=== PATIENT | female | born 1955 | race Caucasian/White ===

== ENCOUNTER 2021-04-25 09:26 | Observation (INO) | payer OTHER ==
[2021-04-25 10:00] LABS: Absolute Lymphocytes (CBC) 1.5 K/uL (0.7-4.9); Basophils % 0.6 % (0-1.3); Lymphocytes % 23.8 % (15.3-44.8); MPV 8.8 fL (7.6-11.3); RBC Red Blood Cell Count 4.74 M/uL (3.86-4.86)
[2021-04-25 10:12] LABS: ALT/SGPT 24 U/L (12-78); AST/SGOT 17 U/L (15-37); Albumin 3.9 g/dL (3.4-5.0); Alkaline Phosphatase 98 U/L (45-117); BUN Blood Urea Nitrogen 10 mg/dL (7-18); Bicarbonate 26 mmol/L (21-32); Bilirubin Direct 0.1 mg/dL (0-0.2); Bilirubin Total 0.5 mg/dL (0.2-1.0); Glucose Level 110 mg/dL (74-106); Magnesium 2.1 mg/dL (1.8-2.4); NT PRO-BNP 99 pg/mL (<125); Potassium 3.7 mmol/L (3.5-5.1); Protein, Total 7.5 g/dL (6.4-8.2); Protime INR 0.91; Sodium Level 141 mmol/L (136-145); Troponin (Emerg Dept Use Only) < 0.02 ng/mL (0.0-0.045)
--- NOTE | 2021-04-25 10:30 | RAD REPORT ---
EXAM DESCRIPTION: RAD - Chest Single View - 04/25/2021 10:17 am CLINICAL HISTORY: CHEST PAIN Chest pain. COMPARISON: No comparisons FINDINGS: Portable technique limits examination quality. The lungs are grossly clear. The heart is normal in size. No displaced fractures. IMPRESSION: No acute intrathoracic process suspected.
--- NOTE | 2021-04-25 11:44 | ER ---
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 + SOB, dizzy, and nausea. Recent change to higher dose of lisinopril. Coronavirus screen: Vaccine status: Patient reports receiving the 2nd dose of the covid vaccine. Client denies travel out of the [place] in the last 14 days. nausea, At this time, the client does not indicate any symptoms associated with coronavirus-19. Ebola Screen: Patient denies travel to an Ebola-affected area in the 21 days before illness onset. Initial Sepsis Screen: Does the patient meet any 2 criteria? No. Patient's initial sepsis screen is negative. Does the patient have a suspected source of infection? No. Patient's initial sepsis screen is negative. Risk Assessment: Do you want to hurt yourself or someone else? Patient reports no desire to harm self or others. Onset of symptoms was April 25, 2021. 09:35 Method Of Arrival: Ambulatory ll1 09:35 Acuity: ANNE 3 ll1 Triage Assessment: 09:40 General: Appears in no apparent distress. Behavior is calm, cooperative, appropriate ll1 for age. Pain: Complains of pain in chest Pain currently is 2 out of 10 on a pain scale. Quality of pain is described as pressure, Pain began 3 hours ago. Is continuous. Neuro: Level of Consciousness is awake, alert, obeys commands, Oriented to person, place, time, situation, Appropriate for age Passenger Brakeman are equal bilaterally Moves all extremities. Full function Gait is steady, Speech is normal, Reports dizziness. Cardiovascular: Reports chest pain, shortness of breath, Heart tones S1 S2 Capillary refill < 3 seconds Clubbing of nail beds is absent JVD Patient's skin is warm and dry. Rhythm is regular. Historical: - Allergies: 09:37 No Known Allergies; ll1 - PMHx: 09:37 Hypertensive disorder; ll1 - PSHx: 09:37 None; ll1 - Immunization history:: Client reports receiving the 2nd dose of the Covid vaccine. - Social history:: Smoking status: Patient denies any tobacco usage or history of. Patient/guardian denies using alcohol, street drugs, The patient lives with family. - Family history:: not pertinent. Screenin:11 Abuse screen: Denies threats or abuse. Nutritional screening: No deficits noted. ll1 Tuberculosis screening: No symptoms or risk factors identified. Fall Risk IV access (20 points). Gait- Impaired (20 pts.). Total Sullivan Fall Scale indicates Low Risk Score (25-44 pts). Fall prevention measures have been instituted. Side Rails Up X 2 Placed close to Nursing Station Frequent Obs/Assesments occuring As available Patient and Family Educated on Fall Prevention Program and strategies. Assessment: 10:40 Reassessment: No changes from previously documented assessment. Patient and/or family ll1 updated on plan of care and expected duration. Pain level reassessed. Patient is alert, oriented x 3, equal unlabored respirations, skin warm/dry/pink. 11:40 Reassessment: No changes from previously documented assessment. Patient and/or family ll1 updated on plan of care and expected duration. Pain level reassessed. Patient is alert, oriented x 3, equal unlabored respirations, skin warm/dry/pink. 12:40 Reassessment: No changes from previously documented assessment. Patient and/or family ll1 updated on plan of care and expected duration. Pain level reassessed. Patient is alert, oriented x 3, equal unlabored respirations, skin warm/dry/pink. 13:40 Reassessment: No changes from previously documented assessment. Patient and/or family ll1 updated on plan of care and expected duration. Pain level reassessed. Patient is alert, oriented x 3, equal unlabored respirations, skin warm/dry/pink. 14:12 Pain: Pain does not radiate. ll1 15:13 Reassessment: No changes from previously documented assessment. Patient and/or family ll1 updated on plan of care and expected duration. Pain level reassessed. Patient is alert, oriented x 3, equal unlabored respirations, skin warm/dry/pink. Pain: Denies pain. Vital Signs: 09:35 BP 168 / 88; Pulse 70; Resp 16; Temp 97.9; Pulse Ox 99% on R/A; Weight 73.94 kg; Height ll1 5 ft. 2 in. (157.48 cm); Pain 2/10; 12:00 BP 134 / 75; Pulse 56; Resp 16; ll1 13:00 BP 134 / 82; Pulse 59; Resp 16; ll1 14:09 BP 139 / 86; Pulse 63; Resp 16; Pulse Ox 99% on R/A; ll1 15:12 BP 131 / 81; Pulse 60; Resp 16; Pulse Ox 99% on R/A; ll1 15:58 BP 136 / 81; Pulse 60; Resp 16; Pulse Ox 99% ; ll1 09:35 Body Mass Index 29.81 (73.94 kg, 157.48 cm) 1 ED Course: 09:28 Patient arrived in ED. mr 09:30 Rosa Leiva MD is Attending Physician. ma2 09:35 Garret Aguila, RN is Primary Nurse. 1 09:37 Triage completed. 1 09:37 Arm band placed on Patient placed in an exam room, on a stretcher. 1 09:45 Patient has correct armband on for positive identification. Bed in low position. Call 1 light in reach. Side rails up X 1. 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 Pulse ox on. NIBP on. 09:45 Inserted saline lock: 22 gauge in right antecubital area, using aseptic technique. ll1 Blood collected. Patient maintains SpO2 saturation greater than 95% on room air. 10:17 XRAY Chest (1 view) In Process Unspecified. EDAL 11:43 Rosa Mcgregor MD is Hospitalizing Provider. nh2 15:22 No provider procedures requiring assistance completed. Patient admitted, IV remains in [address] Administered Medications: No medications were administered Outcome: 11:43 Decision to Hospitalize by Provider. ma2 15:22 Admitted to Tele accompanied by tech, via stretcher, room 206, with chart, Report 1 called to Joey Zabala 15:22 Condition: stable 15:22 Instructed on the need for admit. 15:58 Patient left the ED. 1 Signatures: Dispatcher [employer] EDAL GerardoBeti mr Rosa Leiva MD MD ma2 Garret Aguila, RN RN [facility]
--- NOTE | 2021-04-25 11:44 | EDPHYS ---
Physician Documentation [facility] Name: Leta Limon Age: 66 yrs Sex: Female : 1955 Arrival Date: 04/25/2021 Time: 09:28 Bed 20 Private MD: ED Physician Rosa Leiva HPI: 04/25 11:41 This 66 yrs old Female presents to ER via Ambulatory with complaints of Chest ma2 Tightness. 11:41 Onset: gradually, 1 day(s) ago. Associated signs and symptoms: Pertinent negatives: ma2 cough, headache, lower extremity swelling, lightheadedness, syncope, vomiting. Severity of pain: At its worst the pain was moderate in the emergency department the pain is unchanged. The patient has experienced similar episodes in the past. Historical: - Allergies: 09:37 No Known Allergies; ll1 - PMHx: 09:37 Hypertensive disorder; ll1 - PSHx: 09:37 None; ll1 - Immunization history:: Client reports receiving the 2nd dose of the Covid vaccine. - Social history:: Smoking status: Patient denies any tobacco usage or history of. Patient/guardian denies using alcohol, street drugs, The patient lives with family. - Family history:: not pertinent. ROS: 11:41 Constitutional: Negative for fever, chills, and weight loss. ma2 11:41 All other systems are negative. Exam: 11:41 Constitutional: This is a well developed, well nourished patient who is awake, alert, ma2 and in no acute distress. Head/Face: Normocephalic, atraumatic. Eyes: Pupils equal round and reactive to light, extra-ocular motions intact. Lids and lashes normal. Conjunctiva and sclera are non-icteric and not injected. Cornea within normal limits. Periorbital areas with no swelling, redness, or edema. ENT: Nares patent. No nasal discharge, no septal abnormalities noted. Tympanic membranes are normal and external auditory canals are clear. Oropharynx with no redness, swelling, or masses, exudates, or evidence of obstruction, uvula midline. Mucous membranes moist. Neck: Trachea midline, no thyromegaly or masses palpated, and no cervical lymphadenopathy. Supple, full range of motion without nuchal rigidity, or vertebral point tenderness. No Meningismus. Chest/axilla: Normal chest wall appearance and motion. Nontender with no deformity. No lesions are appreciated. Cardiovascular: Regular rate and rhythm with a normal S1 and S2. No gallops, murmurs, or rubs. Normal PMI, no JVD. No pulse deficits. Respiratory: Lungs have equal breath sounds bilaterally, clear to auscultation and percussion. No rales, rhonchi or wheezes noted. No increased work of breathing, no retractions or nasal flaring. Abdomen/GI: Soft, non-tender, with normal bowel sounds. No distension or tympany. No guarding or rebound. No evidence of tenderness throughout. Skin: Warm, dry with normal turgor. Normal color with no rashes, no lesions, and no evidence of cellulitis. MS/ Extremity: Pulses equal, no cyanosis. Neurovascular intact. Full, normal range of motion. Neuro: Awake and alert, GCS 15, oriented to person, place, time, and situation. Cranial nerves II-XII grossly intact. Motor strength 5/5 in all extremities. Sensory grossly intact. Cerebellar exam normal. Normal gait. Vital Signs: 09:35 BP 168 / 88; Pulse 70; Resp 16; Temp 97.9; Pulse Ox 99% on R/A; Weight 73.94 kg; Height ll1 5 ft. 2 in. (157.48 cm); Pain 2/10; 12:00 BP 134 / 75; Pulse 56; Resp 16; ll1 13:00 BP 134 / 82; Pulse 59; Resp 16; ll1 14:09 BP 139 / 86; Pulse 63; Resp 16; Pulse Ox 99% on R/A; ll1 15:12 BP 131 / 81; Pulse 60; Resp 16; Pulse Ox 99% on R/A; ll1 15:58 BP 136 / 81; Pulse 60; Resp 16; Pulse Ox 99% ; ll1 09:35 Body Mass Index 29.81 (73.94 kg, 157.48 cm) ll1 MDM: 09:51 Patient medically screened. ma2 11:41 Differential diagnosis: abnormal EKG, anxiety, coronary artery disease chest wall pain, ma2 gastroesophageal reflux disease (GERD), stable angina. HEART Score: History: Moderately Suspicious (1), ECG: Non specific repolarization disturbance / LBTB / PM (1), Age: > or = 65 years (2), Risk Factors: 1 or 2 risk factors (1), Troponin: < or = 1 x Normal Limit (0), Total Score = 5. Data reviewed: vital signs, nurses notes, EMS record, lab test result(s), EKG. Counseling: I had a detailed discussion with the patient and/or guardian regarding: the historical points, exam findings, and any diagnostic results supporting the discharge/admit diagnosis, the presence of at least one elevated blood pressure reading (>120/80) during this emergency department visit, the need for outpatient follow up. 04/25 09:30 Order name: Basic Metabolic Panel [facility] 04/25 09:30 Order name: CBC with Diff; Complete Time: 10:53 [facility] 04/25 09:30 Order name: LFT's [facility] 04/25 09:30 Order name: Magnesium; Complete Time: 10:53 [facility] 04/25 09:30 Order name: NT PRO-BNP; Complete Time: 10:53 [facility] 04/25 09:30 Order name: PT-INR; Complete Time: 10:53 [facility] 04/25 09:30 Order name: Troponin (emerg Dept Use Only); Complete Time: 10:53 sd2 04/25 09:30 Order name: XRAY Chest (1 view); Complete Time: 10:53 sd2 04/25 09:30 Order name: Basic Metabolic Panel; Complete Time: 10:53 [facility] 04/25 09:31 Order name: Liver (Hepatic) Function; Complete Time: 10:53 [facility] 04/25 12:51 Order name: Troponin I [facility] 04/25 13:41 Order name: COVID-19 (Coronavirus) Document "Date of Onset" if Symptomatic 04/25 14:14 Order name: CORONAVIRUS [facility] 04/25 15:01 Order name: SARS-COV-2 RT PCR [facility] 04/25 09:30 Order name: EKG; Complete Time: 09:31 ma2 04/25 09:30 Order name: Cardiac monitoring; Complete Time: 09:46 ma2 04/25 09:30 Order name: EKG - Nurse/Tech; Complete Time: 09:46 ma2 04/25 09:30 Order name: IV Saline Lock; Complete Time: 09:46 ma2 04/25 09:30 Order name: Labs collected and sent; Complete Time: 09:46 ma2 04/25 09:30 Order name: O2 Per Protocol; Complete Time: 09:46 ma2 04/25 09:30 Order name: O2 Sat Monitoring; Complete Time: :46 ma2 04/25 12:51 Order name: CONS Physician Consult [facility] 04/25 12:51 Order name: Heart Healthy [facility] 04/25 12:51 Order name: Echo with Doppler [facility] Administered Medications: No medications were administered Disposition Summary: 04/25/21 11:43 Hospitalization Ordered Hospitalization Status: Observation ma2 Provider: Rosa Mcgregor Location: Telemetry/MedSurg (Inpatient) ma2 Condition: Stable ma2 Problem: new ma2 Symptoms: are unchanged ma2 Bed/Room Type: Standard [facility] Room Assignment: 206(04/25/21 15:08) dw Diagnosis - Chest pain, unspecified ma2 Forms: - Medication Reconciliation Form ma2 - SBAR form ma2 Signatures: Dispatcher [employer] Marlin Gallo RN RN dw Rosa Leiva MD MD sd2 Garret Aguila RN RN ll1 Corrections: (The following items were deleted from the chart) 15:08 11:43 ma2 dw
[2021-04-25] MEDS ORDERED: ALPRAZOLAM 0.25 MG TABLET PO PRN (12:47)
[2021-04-25] MEDS ORDERED: ACETAMINOPHEN 500 MG TAB PO PRN (12:47)
[2021-04-25] MEDS: ENOXAPARIN 40 MG/0.4 ML SQ SCH (14:00)
[2021-04-25 16:18] VITALS: O2SAT 99
--- NOTE | 2021-04-25 17:51 | P.HP ---
Certification for Inpatient Patient admitted to: Observation With expected LOS: <2 Midnights Patient will require the following post-hospital care: None Practitioner: I am a practitioner with admitting privileges, knowledge of patient current condition, hospital course, and medical plan of care. Services: Services provided to patient in accordance with Admission requirements found in Title 42 Section 412.3 of the Code of Federal Regulations Patient History Date of Service: 04/25/21 Reason for admission: Chest pain rule out acute coronary syndrome History of Present Illness: Patient is a 66-year-old female came to the hospital with chest discomfort. Pain was mainly in the sternal region. Patient states this was more pressure sensation. Patient decided to come into the hospital for further evaluation. In the emergency room patient's initial troponins and EKG were unremarkable. Patient does not have any medical history. Patient has a family history of father with heart disease. He in his 50s. At this time, patient will be admitted for further evaluation. - Past Medical/Surgical History Past Medical History: Patient denies medical history Past Surgical History: Patient denies surgical history - Family History Father Medical History: Heart disease - Social History Smoking Status: Never smoker Alcohol use: No CD- Drugs: No Review of Systems 10-point ROS is otherwise unremarkable Physical Examination - Vital Signs Temperature: 97.9 F Blood Pressure: 136/81 Pulse: 60 Respirations: 16 - Physical Exam General: Alert, In no apparent distress, Oriented x3 HEENT: Atraumatic, PERRLA, Mucous membr. moist/pink, EOMI, Sclerae nonicteric Neck: Supple, 2+ carotid pulse no bruit, No LAD, Without JVD or thyroid abnormality Respiratory: Clear to auscultation bilaterally, Normal air movement Cardiovascular: Regular rate/rhythm, Normal S1 S2, No murmurs Gastrointestinal: Normal bowel sounds, Soft and benign, Non-distended, No tenderness Musculoskeletal: No clubbing, No swelling, No tenderness Integumentary: No rashes Neurological: Normal gait, Normal speech, Normal strength at 5/5 x4 extr, Normal tone, Sensation intact, Cranial nerves 3-12 intact, Normal affect Lymphatics: No axilla or inguinal lymphadenopathy - Studies Laboratory Data (last 24 hrs) 04/25/21 09:40: PT 10.9, INR 0.91 04/25/21 09:40: WBC 6.20, Hgb 13.6, Hct 41.0, Plt Count 172 04/25/21 09:40: Sodium 141, Potassium 3.7, BUN 10, Creatinine 0.85, Glucose 110 H, Magnesium 2.1, Total Bilirubin 0.5, AST 17, ALT 24, Alkaline Phosphatase 98 Assessment & Plan - Problems (Diagnosis) (1) Chest pain, rule out acute myocardial infarction Current Visit: Yes Status: Acute - Plan 1. Serial troponins and EKG 2. Appreciate Cardiology consultation 3. Echocardiogram and outpatient stress test 4. Anti-platelet therapy, anti coagulation, beta-farzana, statin, and O2 as needed 5. IV morphine for pain 6. Nitro p.r.n. Discharge Plan: Home Plan to discharge in: 24 Hours - Advance Directives Does patient have a Living Will: No Does patient have a Durable POA for Healthcare: No - Code Status/Comfort Care Code Status Assessed: Yes Code Status: Full Code Critical Care: No Time Spent Managing PTS Care (In Minutes): 45
[2021-04-25 19:46] VITALS: BMI 29.8
[2021-04-25] MEDS: MORPHINE 4 MG/ML SYR IV PRN (20:45)
[2021-04-25] MEDS: METOPROLOL TAR 25 MG TAB PO SCH (20:45)
[2021-04-26] MEDS: MORPHINE 4 MG/ML SYR IV PRN ×2 (03:06→06:25)
[2021-04-26 05:58] LABS: Absolute Lymphocytes (CBC) 1.5 K/uL (0.7-4.9); Hematocrit 40.5 % (36.0-45.0); MPV 8.8 fL (7.6-11.3); RBC Red Blood Cell Count 4.69 M/uL (3.86-4.86)
[2021-04-26 06:16] LABS: BUN Blood Urea Nitrogen 10 mg/dL (7-18); Bicarbonate 27 mmol/L (21-32); Glucose Level 108 mg/dL (74-106); Sodium Level 141 mmol/L (136-145); Troponin I < 0.02 ng/mL (0.0-0.045)
[2021-04-26 08:26] VITALS: BP 139/83; TEMP 97.8
[2021-04-26] MEDS ORDERED: ASPIRIN EC 81 MG TAB PO SCH (09:00)
[2021-04-26] MEDS: METOPROLOL TAR 25 MG TAB PO SCH ×2 (09:00→10:34)
[2021-04-26] MEDS: ENOXAPARIN 40 MG/0.4 ML SQ SCH ×2 (09:00→10:33)
[2021-04-26] MEDS ORDERED: PNEUMOCOCCAL VACCINE 0.5 ML IMVAC ONE (11:00)
[2021-04-26] MEDS ORDERED: INFLUENZA VACCINE (for 6+ mo) 0.5 ML DOSE IMVAC ONE (11:00)
--- NOTE | 2021-04-28 08:32 | ECHO ---
HEIGHT: 5 ft 2 in WEIGHT: 163 lb 0.157 oz DATE OF STUDY: 04/25/[address]: Rosa Mcgregor MD 2-DIMENSIONAL: YES M.MODE: YES DOPPLER: YES COLOR FLOW: YES TDS: NO PORTABLE: NO DEFINITY: NO BUBBLE STUDY: NO DIAGNOSIS: CHEST PAIN CARDIAC HISTORY: CATHERIZATION: SURGERY: PROSTHETIC VALVE: PACEMAKER: MEASUREMENTS (cm) DIASTOLIC (NORMALS) SYSTOLIC (NORMALS) IVSd 1.0 (0.6-1.2) LA Diam 3.5 (1.9-4.0) LVEF 56% LVIDd 5.0 (3.5-5.7) LVIDs 3.5 (2.0-3.5) %FS 29% LVPWd 1.1 (0.6-1.2) Ao Diam 3.1 (2.0-3.7) 2 DIMENSIONAL ASSESSMENT: RIGHT ATRIUM: NORMAL LEFT ATRIUM: NORMAL RIGHT VENTRICLE: NORMAL LEFT VENTRICLE: NORMAL TRICUSPID VALVE: NORMAL MITRAL VALVE: PULMONIC VALVE: NORMAL AORTIC VALVE: NORMAL PERICARDIAL EFFUSION: NONE AORTIC ROOT: NORMAL LEFT VENTRICULAR WALL MOTION: NORMAL DOPPLER/COLOR FLOW: SEE BELOW COMMENTS: NORMAL LEFT VENTRICULAR EJECTION FRACTION 55-60%. NORMAL WALL MOTION. MILD MITRAL REGURGITATION. SMALL PERICARDIAL EFFUSION. TECHNOLOGIST: Mesha JACOB
== END 2021-04-26 13:34 | disposition home or self-care (01) ==
LOC: ER 09:26 → ERHOLD 13:24 → 2ND 15:22
PROVIDERS: ADMIT Hospitalist; ATTEND Hospitalist
DX: R07.9 Chest pain, unspecified (principal); Z20.822 Contact with and (suspected) exposure to COVID-19
CPT/HCPCS: 93005; 93306; 85025 ×2; 80048 ×2; 36415; 83735; 85610; 80061; 80076; 84484 ×3; 83880; 71045; 99285; U0003; J1650; G0378 ×3